=== PATIENT | female | born 1985 | race Two or more races ===

== ENCOUNTER 2022-03-06 12:17 | Emergency (ER) | payer OTHER ==
[~2022-03-06] VITALS: Ht 165.1 cm; Wt 92.3 kg
[2022-03-06] MEDS ORDERED: LIDOCAINE 1% HCL (LOCAL ANESTH.) INJ 20ML MDV IJ ONE (14:15)
[2022-03-06] MEDS ORDERED: TETANUS-DIPTH-ACEL PERTUSSIS 0.5ML SYR Tdap IM ONE (14:15)
[2022-03-06] MEDS ORDERED: IBUP800T27 PO (14:30)
[2022-03-06] MEDS ORDERED: CEPH-509 PO (14:30)
[2022-03-06 14:37] VITALS: BP 133/86
== END 2022-03-06 14:39 | disposition home or self-care (01) ==
LOC: ER 12:17
DX: S61.012A Laceration without foreign body of left thumb without damage to nail, initial encounter (principal); Z79.1 Long term (current) use of non-steroidal anti-inflammatories (NSAID); Z79.899 Other long term (current) drug therapy; W26.8XXA Contact with other sharp object(s), not elsewhere classified, initial encounter; Y93.89 Activity, other specified; Y92.89 Other specified places as the place of occurrence of the external cause; Y99.8 Other external cause status
CPT/HCPCS: 12002; 90471; 90715; 99283; J2001